=== PATIENT | male | born 1940 | race Caucasian/White ===

== ENCOUNTER → 2025-01-02 09:41 | Outpatient (REF) | payer OTHER, SELFPAY | LOC: HWRAD 09:41 | PROVIDERS: ATTENDING PHYSICIAN Specialist; FAMILY PHYSICIAN Family Medicine | DX: N50.9 Disorder of male genital organs, unspecified (principal) | CPT/HCPCS: 72192 ==

== ENCOUNTER → 2025-01-05 10:27 | Outpatient (REF) | payer OTHER, SELFPAY | LOC: HWRAD 10:27 | PROVIDERS: ATTENDING PHYSICIAN Specialist; FAMILY PHYSICIAN Family Medicine | DX: N50.9 Disorder of male genital organs, unspecified (principal) | CPT/HCPCS: 76870; 93976 ==